=== PATIENT | female | born 1985 | race Caucasian/White ===

== ENCOUNTER 2017-01-31 08:00 | Emergency (ER) | payer BC ==
[~2017-01-31] VITALS: Ht 157.5 cm; Wt 81.0 kg
[2017-01-31 08:04] VITALS: BP 135/88; PULSE 100; RESP 17; TEMP 98.3; O2SAT 98
[2017-01-31] MEDS ORDERED: TETANUS/DIPHTHERIA TOXOID ADULT 0.5 ML VIAL IM ONE (08:15)
[2017-01-31] MEDS ORDERED: LIDOCAINE 2%/EPINEPHrine 1:100,000 20ML MDV NERV BLOCK ONE (08:15)
[2017-01-31] MEDS ORDERED: LIDOCAINE 2%/EPINEPHrine 1:100,000 50ML MDV ONE (08:19)
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
[2017-01-31] MEDS ORDERED: LIDOCAINE 1%/EPINEPHrine 1:100,000 SOLN 50 ML VIAL ONE (08:29)
[2017-01-31] MEDS ORDERED: ACETAMINOPHEN 500 MG CPLT PO ONE (08:30)
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
== END 2017-01-31 09:27 | disposition home or self-care (01) ==
LOC: NEPE 08:00
DX: S09.90XA Unspecified injury of head, initial encounter (principal); S01.81XA Laceration without foreign body of other part of head, initial encounter; W22.8XXA Striking against or struck by other objects, initial encounter; Y92.007 Garden or yard of unspecified non-institutional (private) residence as the place of occurrence of the external cause; Z23 Encounter for immunization; Z72.0 Tobacco use
CPT/HCPCS: 12051; 70450; 90471; 90714

== ENCOUNTER 2017-07-30 21:35 | Emergency (ER) | payer BC ==
[~2017-07-30] VITALS: Ht 157.5 cm; Wt 80.0 kg
[2017-07-30 21:47] VITALS: BP 124/82; PULSE 97; RESP 16; TEMP 98.3; O2SAT 97
[2017-07-30] MEDS ORDERED: AMOXICILLIN (TRIHYDRATE) 500 MG CAP PO ONE (23:00)
[2017-07-30] MEDS ORDERED: predniSONE 20 MG TAB PO ONE (23:00)
[2017-07-30] MEDS ORDERED: AMOX500T PO (23:06)
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
== END 2017-07-30 23:15 | disposition home or self-care (01) ==
LOC: NEPD 21:35
DX: J02.9 Acute pharyngitis, unspecified (principal); H92.09 Otalgia, unspecified ear; R51 Headache; K21.9 Gastro-esophageal reflux disease without esophagitis; F17.200 Nicotine dependence, unspecified, uncomplicated; Z88.5 Allergy status to narcotic agent
CPT/HCPCS: 99283; J7512

== ENCOUNTER 2017-09-03 17:45 | Emergency (ER) | payer BC ==
[~2017-09-03 17:45] MED LIST: AMOX500T PO
[2017-09-03 17:49] VITALS: BP 127/75; PULSE 99; RESP 20; TEMP 98.6; O2SAT 98
[2017-09-03] MEDS ORDERED: HYDR-3516 PO (19:20)
[2017-09-03] MEDS ORDERED: IBUP1TAB7 PO (19:24)
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
[2017-09-03] MEDS ORDERED: KETOROLAC TROMETHAMINE 60 MG/2 ML (IM) VIAL IM ONE (19:30)
== END 2017-09-03 19:43 | disposition home or self-care (01) ==
LOC: NEPD 17:45
DX: K08.89 Other specified disorders of teeth and supporting structures (principal); F17.200 Nicotine dependence, unspecified, uncomplicated
CPT/HCPCS: 96372; 99283; J1885